=== PATIENT | female | born 1945 | race Caucasian/White ===

== ENCOUNTER → 2018-07-09 15:38 | Outpatient (CLI) | payer MEDICARE, SELFPAY ==
[2018-07-09 17:48] LABS: Anion Gap 8 (5-15); BUN 11 mg/dL (7-18); BUN/Creat Ratio 14.5 RATIO (10-20); Calcium,Total 9.3 mg/dL (8.5-10.1); Chloride 103 mmol/L (98-107); Cholesterol 180 mg/dL (200); Creatinine, Serum 0.76 mg/dL (0.55-1.02); EST Glomerular Filtration Rate 79 mL/min (>60); Est Glom Filt Rate - Afr Amer 96 mL/min (>60); Glucose 105 mg/dL (74-106); High Density Lipoprotein 65 mg/dL; Potassium 3.5 mmol/L (3.5-5.1); Sodium Level 141 mmol/L (136-145); Triglycerides 55 mg/dL; Very Low Density Lipoprotein 11 mg/dL (5-40)
== END ==
PROVIDERS: Family Provider Family Medicine; PCP Family Medicine; Visit Provider Family Medicine
DX: I10 Essential (primary) hypertension (principal)
CPT/HCPCS: 36415; 80048; 80061

== ENCOUNTER → 2018-08-01 12:43 | Outpatient (CLI) | payer MEDICARE, SELFPAY ==
--- NOTE | 2018-08-01 12:45 | BI_ITS ---
MAMMOGRAPHY - BILATERAL SCREENING REASON FOR EXAM: Female, 72 years old. Routine annual screening examination. PERTINENT HISTORY: Non-contributory. Remote left excisional breast biopsies. TECHNIQUE: Digital bilateral breast wen (3D mammographic acquisition) in the CC and MLO projections. 2-D mediolateral oblique (MLO) and craniocaudad (CC) views of both breasts were obtained. CAD: Full Field Digital Mammography with Computer Added Detection was performed. COMPARISON: Comparison is made with prior study dated May 06, 2017 and July 29, 2012. FINDINGS: Breast Composition: The breasts are heterogeneously dense, which may obscure small masses. There are no dominant masses or suspicious calcifications. No other significant abnormalities are identified. There has been no significant change since the prior study. BI/SCREENING MAMM (CAD), BILAT IMPRESSION: Stable bilateral screening mammogram. Yearly follow-up mammogram recommended. (A) ASSESSMENT CATEGORY: BIRADS Category 1: Negative. A letter regarding these results will be sent to the patient by the facility within 30 days. Approximately 10% of breast cancers are not detected by mammography. A normal mammogram should not delay biopsy of a clinically suspicious abnormality. [id number] Electronically Signed: Ignacio Jacques MD at 14:18 EDT Tel [phone], Service support ,
== END ==
PROVIDERS: Family Provider Family Medicine; PCP Family Medicine; Visit Provider Family Medicine
DX: Z00.00 Encounter for general adult medical examination without abnormal findings (principal); Z12.31 Encounter for screening mammogram for malignant neoplasm of breast
CPT/HCPCS: 77063; 77067

== ENCOUNTER → 2019-09-01 10:26 | Outpatient (CLI) | payer MEDICARE, SELFPAY ==
[2019-09-01 13:01] LABS: Anion Gap 5 (5-15); BUN 17 mg/dL (7-18); BUN/Creat Ratio 22.4 RATIO (10-20); Calcium,Total 9.5 mg/dL (8.5-10.1); Chloride 104 mmol/L (98-107); Creatinine, Serum 0.76 mg/dL (0.55-1.02); EST Glomerular Filtration Rate 79 mL/min (>60); Est Glom Filt Rate - Afr Amer 95 mL/min (>60); Glucose 89 mg/dL (74-106); Potassium 3.9 mmol/L (3.5-5.1); Sodium Level 137 mmol/L (136-145)
== END ==
PROVIDERS: Family Provider Family Medicine; PCP Family Medicine; Referring Provider Family Medicine; Visit Provider Family Medicine
DX: I10 Essential (primary) hypertension (principal)
CPT/HCPCS: 36415; 80048

== ENCOUNTER → 2019-09-08 | Outpatient (CLI) | payer MEDICARE, SELFPAY ==
--- NOTE | 2019-09-08 13:15 | BI_ITS ---
MAMMOGRAPHY - BILATERAL SCREENING REASON FOR EXAM: Female, 73 years old. Routine annual screening examination. PERTINENT HISTORY: Non-contributory. Remote left excisional breast biopsy. TECHNIQUE: Digital bilateral breast pauline (3D mammographic acquisition) in the CC and MLO projections. 2-D mediolateral oblique (MLO) and craniocaudad (CC) views of both breasts were obtained. CAD: Full Field Digital Mammography with Computer Added Detection was performed. COMPARISON: Comparison is made with prior study dated August 01, 2018 and May 06, 2017. FINDINGS: Breast Composition: The breasts are heterogeneously dense, which may obscure small masses. There are no dominant masses or suspicious calcifications. No other significant abnormalities are identified. There has been no significant change since the prior study. BI/SCREEN MAMM (CAD) W/PAULINE BILAT IMPRESSION: Stable bilateral screening mammogram. Yearly follow-up mammogram recommended. (A) ASSESSMENT CATEGORY: BIRADS Category 1: Negative. A letter regarding these results will be sent to the patient by the facility within 30 days. Approximately 10% of breast cancers are not detected by mammography. A normal mammogram should not delay biopsy of a clinically suspicious abnormality. [id number] Electronically Signed: Ignacio Jacques, at 15:27 EDT , Service support ,
== END | disposition home or self-care (01) ==
LOC: OPBI 13:13
PROVIDERS: Family Provider Family Medicine; PCP Family Medicine; Referring Provider Family Medicine; Visit Provider Family Medicine
DX: Z12.31 Encounter for screening mammogram for malignant neoplasm of breast (principal)
CPT/HCPCS: 77063; 77067

== ENCOUNTER → 2020-03-02 10:29 | Outpatient (CLI) | payer MEDICARE, SELFPAY ==
[2020-03-02 12:45] LABS: Anion Gap 4 (5-15); BUN 16 mg/dL (7-18); BUN/Creat Ratio 21.4 RATIO (10-20); Calcium,Total 9.6 mg/dL (8.5-10.1); Chloride 105 mmol/L (98-107); Creatinine, Serum 0.75 mg/dL (0.55-1.02); EST Glomerular Filtration Rate 80 mL/min (>60); Est Glom Filt Rate - Afr Amer 97 mL/min (>60); Glucose 100 mg/dL (74-106); Potassium 4.1 mmol/L (3.5-5.1); Sodium Level 140 mmol/L (136-145)
== END ==
PROVIDERS: PCP Family Medicine; Referring Provider Family Medicine; Visit Provider Family Medicine
DX: I10 Essential (primary) hypertension (principal)
CPT/HCPCS: 36415; 80048

== ENCOUNTER → 2020-09-14 10:35 | Outpatient (CLI) | payer MEDICARE, SELFPAY ==
[2020-09-14 16:38] LABS: Anion Gap 4 (5-15); BUN 14 mg/dL (7-18); BUN/Creat Ratio 17.6 RATIO (10-20); Calcium,Total 9.4 mg/dL (8.5-10.1); Chloride 108 mmol/L (98-107); Cholesterol 166 mg/dL (200); EST Glomerular Filtration Rate 74 mL/min (>60); Est Glom Filt Rate - Afr Amer 90 mL/min (>60); Glucose 103 mg/dL (74-106); High Density Lipoprotein 70 mg/dL; Sodium Level 140 mmol/L (136-145); Triglycerides 49 mg/dL; Very Low Density Lipoprotein 10 mg/dL (5-40)
== END ==
PROVIDERS: PCP Family Medicine; Referring Provider Family Medicine; Visit Provider Family Medicine
DX: I10 Essential (primary) hypertension (principal)
CPT/HCPCS: 36415; 80048; 80061

== ENCOUNTER → 2020-11-29 14:54 | Outpatient (CLI) | payer MEDICARE, SELFPAY ==
--- NOTE | 2020-11-29 14:57 | BI_ITS ---
MAMMOGRAPHY - BILATERAL SCREENING REASON FOR EXAM: Female, 75 years old. Routine annual screening examination. PERTINENT HISTORY: Non-contributory. Remote left excisional breast biopsy. TECHNIQUE: Digital bilateral breast pauline (3D mammographic acquisition) in the CC and MLO projections. 2-D mediolateral oblique (MLO) and craniocaudad (CC) views of both breasts were obtained. CAD: Full Field Digital Mammography with Computer Added Detection was performed. COMPARISON: Comparison is made with prior examination dated 09/08/2019 and 08/01/2018. FINDINGS: Breast Composition: The breasts are heterogeneously dense, which may obscure small masses. There are no dominant masses or suspicious calcifications. No other significant abnormalities are identified. There has been no significant change since the prior study. BI/SCRN MAMM (CAD)W/PAULINE BILAT IMPRESSION: Stable bilateral screening mammogram. Yearly follow-up mammogram recommended. (A) ASSESSMENT CATEGORY: BIRADS Category 1: Negative. A letter regarding these results will be sent to the patient by the facility within 30 days. Approximately 10% of breast cancers are not detected by mammography. A normal mammogram should not delay biopsy of a clinically suspicious abnormality. [id number] Electronically Signed: Ignacio Jacques MD at 8:04 EST , Service support ,
--- NOTE | 2020-11-29 15:12 | BD_ITS ---
STUDY: DUAL ENERGY X-RAY ABSORPTIOMETRY / DXA REASON FOR EXAM: Female, 75 years old. 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 COMPARISON: None. FINDINGS: Lumbar Spine (L1-L4): g/cm2 (1.153) / T-score (-0.1) / Z-score (1.7) Findings are suggestive of normal bone density with a low fracture risk. Left Femur Total: g/cm2 (0.820) / T-score (-1.5) / Z-score (0.3) Left Femoral Neck: g/cm2 (0.800) / T-score (-1.7) / Z-score (0.3) Right Femur Total: g/cm2 (0.906) / T-score (-0.8) / Z-score (1.0) Right Femoral Neck: g/cm2 (0.844) / T-score (-1.4) / Z-score (0.6) BD/Dexa Bone Density Study IMPRESSION: The patient is considered osteopenic as outlined below according to World Nasim Organization (WHO) criteria with a moderate fracture risk. Reference Information: The T-score is the number of standard deviations above or below the standard which is normal for young adults at their peak bone mineral density. The World Health Organization (WHO) interprets the T-scores as follows: Above -1 Normal bone density Between -1 and -2.5 Osteopenia Equal to / or below -2.5 Osteoporosis As a practical clinical guideline, osteopenia may be graded as follows: Mild -1 through -1.5 Moderate -1.6 through -2.0 Severe -2.1 through -2.4 The Z-score is the number of standard deviations above or below age-matched controls. A Z-score of less than -1.5 would be considered abnormal. References: 1. NIH Osteoporosis and Related Bone Diseases www osteo.org 2. International Society for Clinical Densitometry www iscd.org 3. National Osteoporosis Foundation www nof.org Electronically Signed: Ignacio Jacques MD at 12:30 EST , Service support ,
== END ==
PROVIDERS: PCP Family Medicine; Referring Provider Family Medicine; Visit Provider Family Medicine
DX: Z00.00 Encounter for general adult medical examination without abnormal findings (principal); Z12.31 Encounter for screening mammogram for malignant neoplasm of breast; N95.9 Unspecified menopausal and perimenopausal disorder
CPT/HCPCS: 77063; 77067; 77080

== ENCOUNTER 2021-01-18 23:42 | Emergency (ER) | payer MEDICARE, SELFPAY ==
[2021-01-18 23:43] VITALS: BP 127/90; PULSE 108; RESP 18; TEMP 36.6; O2SAT 97; BMI 25.6
--- NOTE | 2021-01-18 23:55 | ED.DCSUM_ITS ---
- ER Visit Summary Date of Service: 01/18/21 Chief Complaint: Sore throat History of Present Illness: The patient is a 75 F who presents with a sore throat. It started earlier this evening. Pain is worse with swallowing. She has had nasal congestion and a headache. She denies any fevers. She has had st rep throat in the past. She also admits to some sinus drainage. She took Coricidin HBP this evening. She had her coronavirus vaccination 5 days ago and she is concerned that that could be a side effect from that. Physical Examination: Vital signs reviewed. HEENT exam does show posterior oropharyngeal erythema. There is no tonsillar swelling or exudates. She does have anterior lymphadenopathy, left greater than right. Heart is regular rate and rhythm without murmurs. Lungs are clear to auscultation. Abdomen is soft and nontender. Extremities reveal no edema. Skin exam normal. Neurologic exam normal. Test Results: Rapid strep is negative Emergency Department Course and Treatment: The patient's rapid strep is negative. Her sore throat could either be from the vaccine or from another viral etiology. At this point she is handling secretions normally. Her phonation is normal according to her . She states that she is feeling better at this time. I recommend that she continue the Coricidin HBP and she is going to follow-up with her PCP as well Treatment Plan: [] Disposition: Discharge Impression: Pharyngitis This note was generated with [employer] dictation software. It may contain incorrect words, spelling, and punctuation that were not noted in review of the chart prior to signing ED Disposition - Plan for ED Patient: Disposition: Home or Assisted Living Instructions: ED Pharyngitis, Report Pending Referrals: Gina Man MD [Primary Care Provider] -
[2021-01-19 01:03] VITALS: PULSE 99; O2SAT 97
== END 2021-01-19 01:03 | disposition home or self-care (01) ==
PROVIDERS: Emergency Provider Emergency Medicine; PCP Family Medicine
DX: J02.9 Acute pharyngitis, unspecified (principal)
CPT/HCPCS: 87880; 99282

== ENCOUNTER → 2021-03-14 10:44 | Outpatient (CLI) | payer MEDICARE, SELFPAY ==
[2021-03-14 12:35] LABS: Anion Gap 3 (5-15); BUN 16 mg/dL (7-18); BUN/Creat Ratio 22.3 RATIO (10-20); Calcium,Total 9.5 mg/dL (8.5-10.1); Chloride 105 mmol/L (98-107); Creatinine, Serum 0.72 mg/dL (0.55-1.02); EST Glomerular Filtration Rate 84 mL/min (>60); Est Glom Filt Rate - Afr Amer 102 mL/min (>60); Glucose 94 mg/dL (74-106); Potassium 4.2 mmol/L (3.5-5.1); Sodium Level 139 mmol/L (136-145)
== END ==
PROVIDERS: PCP Family Medicine; Referring Provider Family Medicine; Visit Provider Family Medicine
DX: I10 Essential (primary) hypertension (principal)
CPT/HCPCS: 36415; 80048

== ENCOUNTER → 2021-10-17 14:31 | Outpatient (CLI) | payer MEDICARE, SELFPAY ==
[2021-10-17 18:46] LABS: AST(SGOT) 24 U/L (15-37); Alanine Aminotransfer ALT/SGPT 23 U/L (13-56); Albumin, Serum 4.1 g/dL (3.2-5.0); Alkaline Phosphatase 98 U/L (45-117); Amylase 41 U/L (25-115); Bilirubin, Direct 0.28 mg/dL (0.00-0.30); Globulin 2.8 g/dL (2.2-4.2); Lipase 70 U/L (73-393); Protein, Total 6.9 g/dL (6.4-8.2)
== END ==
PROVIDERS: PCP Family Medicine; Referring Provider Family Medicine; Visit Provider Family Medicine
DX: R10.84 Generalized abdominal pain (principal)
CPT/HCPCS: 36415; 80076; 82150; 83690

== ENCOUNTER → 2022-03-14 | Outpatient (CLI) | payer MEDICARE, SELFPAY ==
[2022-03-14 13:22] LABS: Anion Gap 6 (5-15); BUN 14 mg/dL (7-18); BUN/Creat Ratio 19.4 RATIO (10-20); Calcium,Total 9.6 mg/dL (8.5-10.1); Chloride 104 mmol/L (98-107); Cholesterol 173 mg/dL (200); Creatinine, Serum 0.72 mg/dL (0.55-1.02); EST Glomerular Filtration Rate 83 mL/min (>60); Est Glom Filt Rate - Afr Amer 100 mL/min (>60); Glucose 100 mg/dL (74-106); High Density Lipoprotein 71 mg/dL; Sodium Level 140 mmol/L (136-145); Triglycerides 47 mg/dL; Very Low Density Lipoprotein 9 mg/dL (5-40)
== END | disposition home or self-care (01) ==
LOC: MFPLAB 11:18
PROVIDERS: PCP Family Medicine; Referring Provider Family Medicine; Visit Provider Family Medicine
DX: I10 Essential (primary) hypertension (principal)
CPT/HCPCS: 36415; 80048; 80061

== ENCOUNTER → 2023-09-17 | Outpatient (CLI) | payer MEDICARE, SELFPAY ==
[2023-09-17 18:03] LABS: Anion Gap 4 (5-15); BUN 18 mg/dL (7-18); BUN/Creat Ratio 26.7 RATIO (10-20); Calcium,Total 9.5 mg/dL (8.5-10.1); Chloride 104 mmol/L (98-107); Cholesterol 185 mg/dL (200); Creatinine, Serum 0.68 mg/dL (0.55-1.02); EST Glomerular Filtration Rate 89 mL/min (>60); Est Glom Filt Rate - Afr Amer 108 mL/min (>60); Glucose 121 mg/dL (74-106); High Density Lipoprotein 73 mg/dL; Potassium 3.5 mmol/L (3.5-5.1); Sodium Level 139 mmol/L (136-145); Triglycerides 81 mg/dL; Very Low Density Lipoprotein 16 mg/dL (5-40)
[2023-09-17 18:21] LABS: Microalbumin,Random Urine 7.2 mg/L (NO RANGE EST.); Microalbumin:Creatinine Ratio 6.4 mg/g CRE (<30 mg/g CRE)
== END | disposition home or self-care (01) ==
PROVIDERS: PCP Family Medicine; Visit Provider Family Medicine
DX: I10 Essential (primary) hypertension (principal)
CPT/HCPCS: 36415; 80048; 80061; 82043; 82570

== ENCOUNTER → 2023-11-18 | Outpatient (CLI) | payer MEDICARE, SELFPAY ==
--- NOTE | 2023-11-18 09:47 | BI_ITS ---
MAMMOGRAPHY - BILATERAL SCREENING REASON FOR EXAM: Female, 77 years old. Routine annual screening examination. PERTINENT HISTORY: Non-contributory. Remote left excisional breast biopsies. TECHNIQUE: Digital bilateral breast pauline (3D mammographic acquisition) in the CC and MLO projections. 2-D mediolateral oblique (MLO) and craniocaudad (CC) views of both breasts were obtained. CAD: Full Field Digital Mammography with Computer Added Detection was performed. COMPARISON: Comparison is made with prior study of November 29, 2020 and September 08, 2019. FINDINGS: Breast Composition: The breasts are heterogeneously dense, which may obscure small masses. There are no dominant masses or suspicious calcifications. No other significant abnormalities are identified. There has been no significant change since the prior study. BI/SCRN MAMM (CAD)W/PAULINE BILAT IMPRESSION: Stable bilateral screening mammogram. Yearly follow-up mammogram recommended. (A) ASSESSMENT CATEGORY: BIRADS Category 1: Negative. A letter regarding these results will be sent to the patient by the facility within 30 days. Approximately 10% of breast cancers are not detected by mammography. A normal mammogram should not delay biopsy of a clinically suspicious abnormality. [id number] Electronically Signed: Ignacio Jacques MD at 8:58 EST ,
== END | disposition home or self-care (01) ==
PROVIDERS: PCP Nurse Practitioner Family; Referring Provider Nurse Practitioner Family; Visit Provider Nurse Practitioner Family
DX: Z12.31 Encounter for screening mammogram for malignant neoplasm of breast (principal)
CPT/HCPCS: 77063; 77067

== ENCOUNTER 2024-04-22 10:30 | Outpatient (RCR) | payer MEDICARE, SELFPAY ==
--- NOTE | 2024-03-19 14:20 | HP.PTEVAL ---
Patient's Visit Information Visit Information Visit Information: CELESTE FLETCHER is a 78 year old F referred to Physical Therapy by Dr. Gina Man MD with a diagnosis of L KNEE OA. Date of Evaluation: 03/19/24 Physical Therapist: Theresa Youssef PT, Cert MDT Visit Plan Frequency: 2-3x /Week Duration: 4-6 Weeks Plan: GOES BY [facility]. MODALITIES TO REDUCE EDEMA AND PAIN. RESTORE FULL R KNEE EXTENSION AND KNEE FLEXION TO 120 DEG. PATELLA MOBS. IMPROVE STRENGTH IN QUADS, HS'S AND HIPS IN OPEN AND CLOSED CHAINS. FUNCTIONAL MOBILITY TRAINING WITH GAIT, STAIRS AND TRANSFERS. Subjective Subjective: Work/Leisure: RETIRED Present symptoms: L KNEE PAIN AND SWELLING. L KNEE STIFFNESS - UNABLE TO GET IT STRAIGHT. PAIN IN THE BACK OF KNEE AND UP BACK OF LEG SOMETIMES WITH TOO MUCH WALKING. INTERMITTENT PINCHING FEELING BELOW KNEE CAP. DENIES CATCHING OR LOCKING OF KNEE. Present since: ABOUT 1.5 YEARS AGO Pain Scale: WORST 8/10, LEAST 0/10 Currently: 0/10 Is it getting better, worse or staying the same: STAYING THE SAME Commenced as a result of: [employer] KNEELING AT [employer]: WALKING TOO MUCH, GETTING UP AFTER SITTING - PAIN IN THE BACK OF KNEE. KNEELING. STEPS - ESPECIALLY GOING UP. Better: LYING IN BED. SITTING. VOLTERAN CREAM. TYLONOL ARTHRITIS. Disturbed sleep: NO Previous history/Previous treatment: NO PRIOR TREATMENTS. NO SX OR INJECTIONS. Gait: LIMP WHEN FIRST GETTING UP. ABLE TO WALK NORMAL SOMETIMES AFTER A FEW STEPS BUT PAINFUL IF WALKS TOO FAR. Imaging: NONE PMH/Recent major surgery: HTN Objective Objective: GAIT: THIS PATIENT AMBULATES INDEP'LY INTO PT TODAY WITH FAIR CADANCE AND A MILD LIMP ON THE LLE. NO LOB. TU.96 SEC. NO AD 30 STS TEST: 8 - NO UE ASSIST. Girth L Patella 39 cm, R 37.5 cm Girth 6 inch suprapatellar 44 cm, R 47.5 cm Girth 6 inches infrapatellar 34 cm, R 34.5 cm L knee flexion AROM: 95 degrees L knee ext AROM: -24 degrees L knee flex MMT; 3-/5 L knee ext MMT 3-/5 L hip MMT 4-/5 L Ankle 5/5 R LE MMT: Hip 4/5, Knee 5/5, Ankle 5/5. Sensory deficit: B LE LIGHT TOUCH SENSATION GROSSLY INTACT AND SYMMETRICAL. Palpation: TENDERNESS OF MEDIAL, LATERIAL AND DAIN-PATELLAR REGIONS OF L KNEE. HYPOMOBILITY OF PATELLA. TREATMENT: TA; INSTRUCTION IN PROPER USE OF ICE AND HEAT AND APPROPRIATE ACTIVITY MODIFICATIONS TO ASSIST IN REDUCING INFLAMMATION. Special Tests L Knee Enma - Meniscus: Negative L Knee Michael - ACL: Negative L Knee Anterior Drawer - ACL: Negative L Knee Posterior Drawer - PCL: Negative L Knee Valgus - MCL: Negative L Knee Varus - LCL: Negative Balance/Special Test Scores Lower Extremity Functional Score: 63 Goals Goal 1:: PATIENT WILL HAVE DECREASED EDEMA IN RLE SYMMETRICAL TO LLE. Goal Time Frame: 4-6 Weeks Goal 2:: PATIENT WILL HAVE INCREASED R KNEE ROM TO AT LEAST 0-120 DEG FLEXION. TIONS Goal Time Frame: 4-6 Weeks Goal 3:: PATIENT WILL HAVE INCREASED RLE STRENGTH TO 5/5 THROUGHT ALLOWING FOR INCREASED STABILITY WITH ALL GAIT ACTIVITIES. Goal Time Frame: 4-6 Weeks Goal 4:: PATIENT WILL BE ABLE TO NEGOTIATE STEPS WITH 1 HR WITH RECIPROCAL PATTERN WITHOUT LIMITATION Goal Time Frame: 4-6 Weeks Goal 5:: PATIENT WILL BE INDEP WITH A HEP Goal Time Frame: 4-6 Weeks Rehabilitation Potential Physical Therapy Diagnosis: L LE PAIN, STIFFNESS AND WEAKNESS LIMITING GAIT AND ADL'S. Rehabilitation Potential: Good Anticipated Interventions Patient/Client Instruction: Educate patient on: Condition, Plan of Care and Risk Factors For the Purpose of:: To improve self management Therapeutic Exercise to Include: Strength training, Flexibilty training, Gait and locomotor training and In an aquatic setting For the Purpose of:: To decrease pain, To increase ROM, To improve muscle performance and motor function, To increase tolerance to activity/condition/position, To improve ability of physical actions for home/community/work/leisure, To improve gait and locomotor functions and To increase flexibility/ROM Manual Therapy Techniques to Include: Manual lymph drainage, Mobilization and Passive ROM For the Purpose of:: To decrease pain, To decrease swelling/inflammation and To increase ROM Cryotherapy (ice pack, ice massage): Yes Thermo therapy (hot pack): Yes Ultrasound (thermal/non thermal): Yes (1.3 w/cm2 50% x 8 min to L knee) For the Purpose of:: To decrease pain, To decrease swelling/inflammation and To improve nutrient delivery to tissue Text: Thank you for the opportunity to evaluate your patient. For Medicare and Medicare HMO plans, please review the plan of care and approve it. It will need to be FAXED BACK to us at [phone] for Medicare purposes. For Medicare only, by signing this I certify the plan of care. Please let me know if there are questions or concerns regarding this plan of care. Physician Signature: Date:
--- NOTE | 2024-04-22 11:33 | HP.PTDCSUM ---
Discharge Summary D/C summary: It has been my pleasure to treat CELESTE FLETCHER referred by Dr. Gina Man MD, with the diagnosis of L KNEE OA for a total of 10 visit(s). Discharge Date: 04/22/24 Please see the following information for a summary of their discharge status. Subjective Subjective: PATIENT REPORTS HER KNEE IS STILL GETTING BETTER. WENT ON A SHORT VACATION AND DID A LOT OF WALKING. DOING HEP. PATIENT REPORTS HER KNEE WAS REALLY STIFF AND HURTING BEFORE PT AND NOW IT IS FEELING BETTER AND SHE CAN WALK BETTER WITHOUT SO MUCH HURT. HAS NOT HAD MRI YET. STILL CAN'T SQUAT AND TRYING HURTS IT. STEPS ARE BETTER. STILL GETTING INTERMITTENT CATCHING FEELING IN THE BACK OF KNEE WITH WALKING. Pain L knee: Pain Intensity (Out of 10): 4 Overall Improvement % Improvement: 80 Objective Objective/Function: THIS PATIENT HAS MADE GREAT PROGRESS WITH PT AND IS INDEP WITH A HEP BUT STILL HAS PAIN, TIGHTNESS, WEAKNESS AND SWELLING OF THE L KNEE. TU.86 SEC. NO AD 30 STS TEST: 13 - NO UE ASSIST. Girth L Patella 38 cm, R 37.5 cm L knee flexion AROM: 114 degrees L knee ext AROM: -4 degrees L knee flex MMT; 4-/5 L knee ext MMT 3-/5 L hip MMT 4-/5 L Ankle 5/5 Goals Goal 1:: PATIENT WILL HAVE DECREASED EDEMA IN RLE SYMMETRICAL TO LLE. Goal Progress: Progressing Goal 2:: PATIENT WILL HAVE INCREASED R KNEE ROM TO AT LEAST 0-120 DEG FLEXION. TIONS Goal Progress: Progressing Goal 3:: PATIENT WILL HAVE INCREASED RLE STRENGTH TO 5/5 THROUGHT ALLOWING FOR INCREASED STABILITY WITH ALL GAIT ACTIVITIES. Goal Progress: Progressing Goal 4:: PATIENT WILL BE ABLE TO NEGOTIATE STEPS WITH 1 HR WITH RECIPROCAL PATTERN WITHOUT LIMITATION Goal 5:: PATIENT WILL BE INDEP WITH A HEP Goal Progress: Goal Met Plan Plan: D/C TO HEP AND PHYSICIAN FOLLOW UP. PATIENT AGREEABLE. D/C Information d/c sentence: If there are questions or concerns regarding this patient's physical therapy, please feel free to call me at [phone]. Thank you for the referral of this patient. Sincerely, Theresa Youssef, PT, Cert MDT Balance/Gait/Functional tests Balance/Special Test Scores Lower Extremity Functional Score: 71 Improvement % Improvement: 80
== END 2024-04-22 19:00 | disposition home or self-care (01) ==
LOC: PT 10:30
PROVIDERS: PCP Nurse Practitioner Family; Referring Provider Family Medicine; Visit Provider Family Medicine
DX: M17.12 Unilateral primary osteoarthritis, left knee (principal)
CPT/HCPCS: 97035; 97110; 97140; 97162; 97530

== ENCOUNTER → 2024-04-27 | Outpatient (CLI) | payer MEDICARE, SELFPAY ==
--- NOTE | 2024-04-27 14:56 | RAD_ITS ---
STUDY: X-RAY - LEFT KNEE REASON FOR EXAM: Female, 78 years old. Pain. TECHNIQUE: 4 views of the left knee. COMPARISON: None. FINDINGS: Normal visualized distal femur. Normal visualized proximal tibia and fibula. Normal proximal tibiofibular articulation. There is no demonstrated fracture. There is mild degenerative arthrosis of the medial femorotibial compartment. There is mild degenerative arthrosis of the lateral femorotibial compartment. There is mild degenerative arthrosis of the patellofemoral articulation. There is chondrocalcinosis of the medial and lateral menisci. The soft tissue structures are unremarkable. RAD/Knee 4 or More Views IMPRESSION: Mild tricompartment degenerative arthrosis. Chondrocalcinosis of the medial and lateral menisci. No demonstrated fracture. Electronically Signed: Del Malagon MD at 16:16 EDT ,
== END | disposition home or self-care (01) ==
LOC: MTRAD 14:55
PROVIDERS: PCP Family Medicine; Referring Provider Family Medicine; Visit Provider Family Medicine
DX: M17.12 Unilateral primary osteoarthritis, left knee (principal)
CPT/HCPCS: 73564

== ENCOUNTER → 2025-02-18 | Outpatient (CLI) | payer MEDICARE, SELFPAY ==
--- NOTE | 2025-02-18 12:11 | BI_ITS ---
EXAM: SCRN MAMM (CAD)W/PAULINE BILAT 02/18/2025 CLINICAL HISTORY: F, Age 79 y/o , SCREENING TECHNIQUE: Bilateral screening digital breast tomosynthesis with 2D and 3D images. Computer aided detection. COMPARISON: Prior exam(s) dated 11/18/2023, 11/29/2020. FINDINGS: TISSUE DENSITY: The breast tissue is heterogenously dense, which may obscure small masses. The mammogram demonstrates that the patient has dense breasts. Supplemental screening with whole breast ultrasound or MRI may be considered for further evaluation. Bilateral Breast Mammographic Findings: No significant masses, calcifications or other abnormalities are identified. BI/SCRN MAMM (CAD)W/PAULINE BILAT IMPRESSION: Right Breast: BIRADS 1 NEGATIVE. Left Breast: BIRADS 1 NEGATIVE. OVERALL FINAL ASSESSMENT: BIRADS 1 NEGATIVE. RECOMMENDATION: Routine annual follow-up in 1 Year A letter with findings and recommendations will be mailed to the patient. Reading Location: [id number]
== END | disposition home or self-care (01) ==
LOC: OPBI 12:09
PROVIDERS: PCP Family Medicine; Referring Provider Family Medicine; Visit Provider Family Medicine
DX: Z12.31 Encounter for screening mammogram for malignant neoplasm of breast (principal)
CPT/HCPCS: 77063; 77067